=== PATIENT | male | born 1995 | race Two or more races ===

== ENCOUNTER 2023-11-25 12:40 | Emergency (ER) | payer OTHER ==
[2023-11-25 12:46] VITALS: BP 119/83; PULSE 89; RESP 18; TEMP 98.2; BMI 38.7
[2023-11-25] MEDS ORDERED: ACETAMINOPHEN 500 MG TABLET (FP) ONE (14:25)
[2023-11-25] MEDS ORDERED: KETOROLAC TROMETHAMINE 30 MG/1 ML VIAL ONE (14:25)
[2023-11-25] MEDS: KETOROLAC TROMETHAMINE 30 MG/1 ML VIAL IM ONE (14:28)
[2023-11-25] MEDS: ACETAMINOPHEN 500 MG TABLET (FP) PO ONE (14:29)
== END 2023-11-25 15:25 | disposition home or self-care (01) ==
LOC: JERFT 12:40
PROC: 3E0233Z Introduction of Anti-inflammatory into Muscle, Percutaneous Approach (ICD-10-PCS; principal; 2023-11-25)
DX: M25.571 Pain in right ankle and joints of right foot (principal); S93.491A Sprain of other ligament of right ankle, initial encounter; V89.2XXA Person injured in unspecified motor-vehicle accident, traffic, initial encounter; Y92.410 Unspecified street and highway as the place of occurrence of the external cause
CPT/HCPCS: 73610-TC-RT-FY; 99284-25